=== PATIENT | female | born 1970 | race Caucasian/White ===

== ENCOUNTER 2022-10-28 12:00 | Inpatient (IN) | payer OTHER ==
[~2022-10-28] VITALS: Ht 154.9 cm; Wt 68.0 kg
[~2022-10-28 12:00] MED LIST: MULTI VITAMIN1 EACH PO
[2022-11-06] MEDS ORDERED: NEURONTIN300 MG PO (12:33)
== END 2022-11-06 12:52 | disposition home or self-care (01) | DRG 331 ==
LOC: O/R 11-03 05:51 → SURH 11-03 12:00 → OB/GYN 11-03 16:39
PROVIDERS: ADMIT Surgery; ATTEND Surgery
PROC: 0DBP4ZZ Excision of Rectum, Percutaneous Endoscopic Approach (ICD-10-PCS; 2022-11-03)
PROC: 0DJD8ZZ Inspection of Lower Intestinal Tract, Via Natural or Artificial Opening Endoscopic (ICD-10-PCS; 2022-11-03)
PROC: 3E0F7GC Introduction of Other Therapeutic Substance into Respiratory Tract, Via Natural or Artificial Opening (ICD-10-PCS; 2022-11-03)
PROC: 0DTN4ZZ Resection of Sigmoid Colon, Percutaneous Endoscopic Approach (ICD-10-PCS; principal; 2022-11-03 13:15)
PROC: B246ZZZ Ultrasonography of Right and Left Heart (ICD-10-PCS; 2022-11-04)
DX: K57.32 Diverticulitis of large intestine without perforation or abscess without bleeding (principal); Z20.822 Contact with and (suspected) exposure to COVID-19; J45.20 Mild intermittent asthma, uncomplicated; G89.18 Other acute postprocedural pain